=== PATIENT | male | born 1985 | race Caucasian/White ===

== ENCOUNTER 2017-08-21 09:47 | Emergency (ER) | payer SELFPAY ==
[2017-08-21] MEDS ORDERED: CEPHALEXIN 500 MG CAPSULE PO STA (09:57)
[2017-08-21] MEDS ORDERED: HYDROCODONE/APAP 7.5/325MG TABLET PO ONE (09:57)
[2017-08-21] MEDS ORDERED: Diph,Pert(Acell),Tet Vac 0.5 ML SYR IM ONE (09:57)
[2017-08-21] MEDS ORDERED: TOPICAL LIDOCAINE W/ EPI 5 ML TOP ONE (09:59)
--- NOTE | 2017-08-21 10:02 | Emergency Department Record ---
History of Present Illness - General Chief Complaint: Laceration(s) Stated Complaint: SUTURE REMOVAL Time Seen by Provider: 08/21/17 09:57 Source: Patient Mode of Arrival: Ambulatory Limitations: No limitations - History of Present Illness Initial Commments: 31 yo male presents with an injury to his right lower anterior leg. He was at work. He was climbing down a ladder and slipped. His right leg went into the ladder injuring his anterior ortiz area. He has lacerations and abrasions. He is unsure of the last tetanus. No other injury. He ambulates without pain but it is very painful to touch. He is has IDDM. Extremity Location: Right: Lower leg Place: Work Context: Accidental Associated Symptoms: None Treatments Prior to Arrival: Other - [place] Coma Scale Eye Response: (4) Open spontaneously Motor Response: (6) Obeys commands Verbal Response: (5) Oriented [place] Total: 15 - Related Data Home Medications Medication Instructions Recorded Confirmed Last Taken Insulin Lispro [Humalog] 100 unit SQ ASDIR 08/21/17 08/21/17 08/21/17 Previous Rx's Medication Instructions Recorded Cephalexin [Keflex] 500 mg PO TID #15 cap 08/21/17 Allergies Allergy/AdvReac Type Severity Reaction Status Date / Time No Known Drug Allergies Allergy Verified 08/21/17 09:58 Review of Systems Constitutional: Denies: Chills, Fever, Malaise, Weakness Eyes: Denies: Eye discharge ENT: Denies: Congestion, Throat pain Respiratory: Denies: Cough Cardiovascular: Denies: Chest pain, Syncope Endocrine: Denies: Fatigue Gastrointestinal: Denies: Abdominal pain, Diarrhea, Nausea, Vomiting Genitourinary: Denies: Dysuria, Frequency, Hematuria Musculoskeletal: Denies: Arthralgia, Back pain Skin: Reports: As per HPI, Other Neurological: Denies: Abnormal gait, Headache, Numbness, Tingling, Tremors, Weakness Psychiatric: Denies: Anxiety Hematological/Lymphatic: Denies: Easy bleeding, Easy bruising Physical Exam - General General Appearance: Alert, Oriented x3, Cooperative, No acute distress Limitations: No limitations - Head Head exam: Normal inspection. negative: Atraumatic, Normocephalic Head exam detail: negative: Abrasion, Contusion, Hematoma - Eye Eye exam: Normal appearance, PERRL - ENT ENT exam: Normal exam, Mucous membranes moist Ear exam: Normal external inspection Nasal Exam: Normal inspection Mouth exam: Normal external inspection - Neck Neck exam: Normal inspection, Full ROM. negative: Tenderness - Cardiovascular Cardiovascular Exam: Regular rate, Normal rhythm, Normal heart sounds - Rectal Rectal exam: Deferred - exam: Deferred - Extremities Extremities exam: Full ROM, Normal capillary refill, Tenderness. negative: Normal inspection, Pedal edema Image of Full Body: 1 - 3 cm abrasion/laceration, no FB 2 - 3cm laceration, clean, no FB - Neurological Neurological exam: Alert, Oriented X3 - Psychiatric Psychiatric exam: Normal affect, Normal mood - Skin Skin exam: Abrasion Type of lesion: Laceration Course - Reevaluation(s) Reevaluation #1: Procedure Laceration Right Lower Leg 3cm Betadine prep ShurClens cleaning followed by copious NS irrigation with Zerowet No FB or bony injury seen Prolene suture 3-0 5 Sutures Placed Tolerated well 08/21/17 10:03 We discussed home care, reasons for immediate return and suture removal. 08/21/17 10:46 The proximal injury was abrasion not requiring suturing 08/21/17 10:49 XR was negative for Fx or FB 08/21/17 10:50 Disposition Disposition: Discharge Clinical Impression: Leg laceration Disposition: Home, Self-Care Condition: (1) Good Instructions: Laceration (ED) Additional Instructions: Keep the area dry and clean Clean daily and cover if outside Return if warm, red, pus, streaking, drainage or any concerns about infection Suture removal in 10 days in the ED or your family doctor's office Prescriptions: Cephalexin [Keflex] 500 mg PO TID #15 cap Forms: Patient Portal Access Time of Disposition: 10:47 Quality - Quality Measures Quality Measures: N/A - Blood Pressure Screening Does Patient Have Any of the Following: No Blood Pressure Classification: Hypertensive Reading Systolic Measurement: 143 Diastolic Measurement: 74 Screening for High Blood Pressure: < Pre-Hypertensive BP, F/U Documented > [ G8950] Pre-Hypertensive Follow-up Interventions: Referral to alternative/primary care provider.
--- NOTE | 2017-08-22 15:40 | RADIOLOGY REPORT ---
EXAM: LOWER LEG, RIGHT HISTORY: PATIENT FELL WITH RIGHT LOWER LEG INJURY. TECHNIQUE: AP and lateral views of the right lower leg. COMPARISON: None. FINDINGS: No fracture or destructive lesion seen. A couple of metallic markers were placed overlying the area of injury along the anterior and lateral aspect of the lower leg. There is some underlying soft tissue prominence approximately 3.7 cm in craniocaudal length at the level of the midshaft of the tibia. This may be some form of artifact overlying the soft tissues representing some form of dressing, although correlation with physical exam suggested. IMPRESSION: 1. NO FRACTURE OF THE RIGHT LOWER LEG EVIDENT. 2. A FOCAL SOFT TISSUE PROMINENCE ANTERIOR TO THE MIDSHAFT OF THE TIBIA QUESTIONABLY AN ARTIFACT, DESCRIBED ABOVE. JOB NUMBER: [id number] [facility]
== END 2017-08-21 10:59 | disposition home or self-care (01) ==
LOC: ER 09:47
DX: S81.811A Laceration without foreign body, right lower leg, initial encounter (principal); W11.XXXA Fall on and from ladder, initial encounter; Y92.009 Unspecified place in unspecified non-institutional (private) residence as the place of occurrence of the external cause; Y99.0 Civilian activity done for income or pay
CPT/HCPCS: 12032; 90715; 96372; 99283; 99284

== ENCOUNTER 2017-09-01 10:18 | Emergency (ER) | payer OTHER ==
--- NOTE | 2017-09-01 10:27 | Emergency Department Record ---
History of Present Illness - General Stated Complaint: SUTURE REMOVAL Time Seen by Provider: 09/01/17 10:22 Source: Patient Mode of arrival: Ambulatory Limitations: No limitations - History of Present Illness Initial Comments: 31 yo male presents for suture removal and wound check. No complaints with he healing. MD Complaint: Suture/staple removal -: Days(s) (10) Initial Visit For: Laceration Returns Today for: Staple/stitch removal, Wound recheck Symptoms Since Prior Visit: No new symptoms Associated Symptoms: None - Related Data Allergies Allergy/AdvReac Type Severity Reaction Status Date / Time No Known Drug Allergies Allergy Verified 08/21/17 09:58 Review of Systems Constitutional: Denies: Fever Musculoskeletal: Denies: Arthralgia, Joint swelling, Myalgia Skin: Denies: Bruising, Change in color, Rash Neurological: Denies: Abnormal gait Hematological/Lymphatic: Denies: Easy bleeding, Easy bruising Past Medical History - SOCIAL HISTORY Smoking Status: Current every day smoker Drug Use: None - RESPIRATORY Hx Respiratory Disorders: No - CARDIOVASCULAR Hx Cardio Disorders: No - NEURO Hx Neuro Disorders: No - GI Hx GI Disorders: No - Hx Genitourinary Disorders: No - ENDOCRINE Hx Endocrine Disorders: Yes Hx Diabetes: Yes (type 1) Hx Thyroid Disease: No - MUSCULOSKELETAL Hx Musculoskeletal Disorders: No - PSYCH Hx Psych Problems: No - HEMATOLOGY/ONCOLOGY Hx Hematology/Oncology Disorders: No Physical Exam - General General Appearance: Alert, Oriented x3, Cooperative, No acute distress Limitations: No limitations - Head Head exam: Atraumatic, Normal inspection - Eye Eye exam: Normal appearance - ENT ENT exam: Normal exam Ear exam: Normal external inspection Nasal Exam: Normal inspection Mouth exam: Normal external inspection - Neck Neck exam: Normal inspection - Extremities Extremities exam: Normal inspection, Normal capillary refill, Other (Healing well, no redness, pus, or signs of infection. Sutures intact) - Neurological Neurological exam: Alert, Normal gait, Oriented X3, Reflexes normal - Psychiatric Psychiatric exam: Normal affect, Normal mood - Skin Skin exam: Dry, Intact, Normal color, Warm Course - Reevaluation(s) Reevaluation #1: 09/01/17 10:28 The sutures were removed without difficulty No signs of infection or complication Disposition Disposition: Discharge Clinical Impression: Visit for suture removal Disposition: Home, Self-Care Condition: (1) Good Instructions: Stitches Removal (ED) Additional Instructions: Return if you have any ongoing concerns about the healing of the wound Forms: Patient Portal Access Time of Disposition: 10:29 Quality - Quality Measures Quality Measures: N/A - Blood Pressure Screening Does Patient Have Any of the Following: No Blood Pressure Classification: Pre-Hypertensive BP Reading Systolic Measurement: 127 Diastolic Measurement: 81 Screening for High Blood Pressure: < Pre-Hypertensive BP, F/U Documented > [ G8950] Pre-Hypertensive Follow-up Interventions: Referral to alternative/primary care provider.
== END 2017-09-01 10:42 | disposition home or self-care (01) ==
LOC: ER 10:18
DX: Z48.02 Encounter for removal of sutures (principal)